=== PATIENT | female | born 1930 | race Caucasian/White ===

== ENCOUNTER 2018-03-24 16:28 | Emergency (ER) | payer MEDICARE, OTHER ==
[2018-03-24] MEDS ORDERED: Ondansetron 4 MG/2 ML SDV IVPUSH ONE (16:46)
[2018-03-24] MEDS ORDERED: HYDROmorphone 1 MG/ML Syringe IVPUSH ONE (16:47)
[2018-03-24] MEDS ORDERED: Sodium Chloride 0.9% 1,000 ML IV SCH (17:00)
[2018-03-24] MEDS: Sodium Chloride 0.9% 10 ML Syringe FLUSH PRN ×2 (17:20→18:21)
[2018-03-24] MEDS ORDERED: Iopamidol 612 MG/ML 100 ML Bottle IVPUSH ONE (18:20)
[2018-03-24] MEDS ORDERED: Diatrizoate Meglumine/Diatrizoate Sodium 37% 120 ML Bottle PO ONE (18:20)
--- NOTE | 2018-03-24 18:45 | CT ---
CT abdomen and pelvis Technique: Multiple axial sections were obtained from above the dome of the diaphragm inferiorly through the pubic symphysis. Intravenous and oral contrast was utilized. Delayed images were also obtained from above the kidneys inferiorly to the pubic symphysis. Comparison: No prior abdominal imaging is available. Findings: Small portion of the visualized lung bases show nothing acute. Visualized liver shows no focal parenchymal abnormality. Spleen appears within normal limits in size. There is a low density area showing lack of enhancement within the upper spleen having the appearance of a splenic infarct. Adrenal glands show no nodule. Multiple small cysts are noted within both kidneys, more numerous on the left side. Larger cyst is noted inferiorly within the left kidney measuring approximately 2.5 cm. Pancreas is within normal limits. Aorta shows diffuse atherosclerotic calcification which continues into the iliac vessels. No retroperitoneal adenopathy is seen. Gallbladder contains no calcified gallstones. No mesenteric abnormalities are seen. Appendix appears normal. Diverticuli are seen within the sigmoid colon and descending colon without diverticulitis. Calcifications are noted within the uterus which is felt to represent a combination of a small calcified fibroid and vascular calcification. No free fluid is seen within the pelvis. No pelvic mass or adenopathy is seen. Delayed images shows contrast within both nondilated ureters as well as contrast within the bladder. Bone window settings were reviewed which shows diffuse degenerative change throughout the spine. Impression: 1. Lack of enhancement within a portion of the upper spleen compatible with splenic infarct. 2. Other incidental findings as noted above. No other acute abnormality is seen. Diagnostic code #3
--- NOTE | 2018-03-24 18:51 | EDM.PDOC ---
ED HPI GENERAL MEDICAL PROBLEM - General Chief Complaint: Abdominal Pain Stated Complaint: SEVERE PAIN LEFT SIDE Time Seen by Provider: 03/24/18 16:41 Source of Information: Reports: Patient History Limitations: Reports: No Limitations - History of Present Illness INITIAL COMMENTS - FREE TEXT/NARRATIVE: The patient presents with left sided abdominal pain. The pain started yesterday and it is in the left upper and lower abdomen. She had some nausea but no vomiting. She has no appetite. She has no diarrhea. She had a normal BM yesterday. She has no fever, chills, cough, chest pain, shortness of breath or dysuria. She still has her appendix and gallbladder as far as she knows. Onset: Gradual Duration: Day(s): (Yesterday) Location: Reports: Abdomen Quality: Reports: Sharp Severity: Moderate Improves with: Reports: None Worsens with: Reports: None Associated Symptoms: Reports: Nausea/Vomiting. Denies: Chest Pain, Cough, Fever /Chills, Headaches, Shortness of Breath Left Abdomen Pain Score (Numeric/FACES): 6 - Related Data Allergies Allergy/AdvReac Type Severity Reaction Status Date / Time No Known Allergies Allergy Verified 03/24/18 16:39 Home Meds: Home Meds Simvastatin [Zocor] 10 mg PO DAILY 01/10/18 [History] metFORMIN [Glucophage XR] 1,000 mg PO BEDTIME 01/10/18 [History] Acetaminophen [Pain & Fever] 650 mg PO Q6HR PRN MDD 4 gm daily 01/13/18 [History ] Benazepril [Lotensin] 40 mg PO DAILY #0 01/13/18 [Rx] Cholecalciferol (Vitamin D3) [Vitamin D3] 1,000 units PO DAILY #30 tablet [Rx] Ibuprofen [Motrin] 600 mg PO Q6H PRN 01/13/18 [History] amLODIPine [Norvasc] 5 mg PO DAILY #0 01/13/18 [Rx] hydroCHLOROthiazide [Hydrochlorothiazide] 12.5 mg PO DAILY #0 01/13/18 [Rx] Past Medical History HEENT History: Reports: Hard of Hearing Other HEENT History: Bilateral hearing aides-not with Cardiovascular History: Reports: High Cholesterol, Hypertension [employer] History: Reports: Musculoskeletal History: Reports: Arthritis, Fracture Other Musculoskeletal History: Left arm fractured 7-8 yrs ago Endocrine/Metabolic History: Reports: Diabetes, Type II - Infectious Disease History Infectious Disease History: Reports: Chicken Pox - Past Surgical History HEENT Surgical History: Reports: None Cardiovascular Surgical History: Reports: None Endocrine Surgical History: Reports: None Social & Family History - Family History Family Medical History: Noncontributory - Tobacco Use Smoking Status *Q: Never Smoker Second Hand Smoke Exposure: No - Caffeine Use Caffeine Use: Reports: None - Recreational Drug Use Recreational Drug Use: No ED ROS GENERAL - Review of Systems Review Of Systems: See Below Constitutional: Reports: No Symptoms HEENT: Reports: No Symptoms Respiratory: Reports: No Symptoms Cardiovascular: Reports: No Symptoms Endocrine: Reports: No Symptoms GI/Abdominal: Reports: Abdominal Pain, Nausea. Denies: Diarrhea, Vomiting : Reports: No Symptoms Musculoskeletal: Reports: No Symptoms ED EXAM, GI/ABD - Physical Exam Exam: See Below Exam Limited By: No Limitations General Appearance: Alert, No Apparent Distress Ears: Normal External Exam Nose: Normal Inspection Head: Atraumatic, Normocephalic Neck: Normal Inspection Respiratory/Chest: No Respiratory Distress, Lungs Clear, Normal Breath Sounds Cardiovascular: Regular Rate, Rhythm, No Edema, No Murmur GI/Abdominal Exam: Soft, No Organomegaly, No Mass, Tender (Mild to moderate tenderness to the left lower and upper abdomen.) Course - Vital Signs Last Recorded V/S: Last Vital Signs Temp 97.1 F 03/24/18 16:35 Pulse 80 03/24/18 16:35 Resp 16 03/24/18 16:35 BP 124/63 03/24/18 16:35 Pulse Ox 99 03/24/18 16:35 - Orders/Labs/Meds Orders: Active Orders 24 hr Category Date Time Status EKG Documentation Completion [RC] ASDIRECTED Care 03/24/18 19:00 Active Peripheral IV Care [RC] . DIRECTED Care 03/24/18 16:46 Active CULTURE URINE [RM] Stat Lab 03/24/18 19:47 Ordered Sodium Chloride 0.9% [Normal Saline] 1,000 ml Med 03/24/18 17:00 Active IV ASDIRECTED Sodium Chloride 0.9% [Saline Flush] Med 03/24/18 16:46 Active 10 ml FLUSH ASDIRECTED PRN ED Antiemetic Medication Reflex [OM.PC] Stat Oth 03/24/18 16:46 Ordered Peripheral IV Insertion Adult [OM.PC] Stat Oth 03/24/18 16:46 Ordered EKG 12 Lead [EK] Stat Ther 03/24/18 18:59 Ordered Medication Orders Sodium Chloride (Normal Saline) 1,000 mls @ 125 mls/hr IV ASDIRECTED TOÑA Last Admin: 03/24/18 17:19 Dose: 125 mls/hr Sodium Chloride (Saline Flush) 10 ml FLUSH ASDIRECTED PRN PRN Reason: Keep Vein Open Last Admin: 03/24/18 18:21 Dose: 10 ml Admin: 03/24/18 17:20 Dose: 10 ml Labs: Laboratory Tests 03/24/18 03/24/18 03/24/18 Range/Units 16:59 17:09 17:09 WBC 10.07 H (3.98-10.04) K/mm3 RBC 4.93 (3.98-5.22) M/mm3 Hgb 14.7 (11.2-15.7) gm/L Hct 43.8 (34.1-44.9) % MCV 88.8 (79.4-94.8) fl MCH 29.8 (25.6-32.2) pg MCHC 33.6 (32.2-35.5) g/dl RDW Std Deviation 45.6 (36.4-46.3) fL Plt Count 207 (182-369) K/mm3 MPV 11.7 (9.4-12.3) fl Neut % (Auto) 67.8 (34.0-71.1) % Lymph % (Auto) 19.9 (19.3-51.7) % [place] % (Auto) 10.7 (4.7-12.5) % Eos % (Auto) 1.1 (0.7-5.8) Baso % (Auto) 0.3 (0.1-1.2) % Neut # (Auto) 6.83 H (1.56-6.13) K/mm3 Lymph # (Auto) 2.00 (1.18-3.74) K/mm3 [place] # (Auto) 1.08 H (0.24-0.36) K/mm3 Eos # (Auto) 0.11 (0.04-0.36) K/mm3 Baso # (Auto) 0.03 (0.01-0.08) K/mm3 Sodium 141 (136-145) mEq/L Potassium 3.1 L (3.5-5.1) mEq/L Chloride 101 (98-107) mEq/L Carbon Dioxide 29 (21-32) mEq/L Anion Gap 14.1 (5-15) BUN 21 H (7-18) mg/dL Creatinine 1.0 (0.55-1.02) mg/dL Est Cr Clr Drug Dosing 31.35 mL/min Estimated GFR (MDRD) 52 (>60) mL/min BUN/Creatinine Ratio 21.0 H (14-18) Glucose 145 H (83-115) mg/dL Calcium 9.7 (8.5-10.1) mg/dL Total Bilirubin 0.8 (0.2-1.0) mg/dL AST 26 (15-37) U/L ALT 19 (14-59) U/L Alkaline Phosphatase 135 H (46-116) U/L Total Protein 8.4 H (6.4-8.2) g/dl Albumin 3.6 (3.4-5.0) g/dl Globulin 4.8 gm/dL Albumin/Globulin Ratio 0.8 L (1-2) Lipase 140 (73-393) U/L Urine Color Yellow (Yellow) Urine Appearance Slt cloudy H (Clear) Urine pH 5.5 (5.0-8.0) Ur Specific [place] 1.025 (1.005-1.030) Urine Protein Trace H (Negative) Urine Glucose (UA) Negative (Negative) Urine Ketones Trace H (Negative) Urine Occult Blood Negative (Negative) Urine Nitrite Negative (Negative) Urine Bilirubin 1+ H (Negative) Urine Urobilinogen 1.0 (0.2-1.0) Ur Leukocyte Esterase Trace H (Negative) Urine RBC 0-5 (0-5) /hpf Urine WBC 10-20 H (0-5) /hpf Ur Epithelial Cells 5-10 H (0-5) /hpf Urine Bacteria Few (FEW) /hpf Urine Mucus Many H (FEW) /hpf Meds: Medications Generic Name Dose Route Start Last Admin Trade Name Freq PRN Reason Stop Dose Admin Sodium Chloride 1,000 mls @ 125 mls/hr 03/24/18 17:00 03/24/18 17:19 Normal Saline IV 125 mls/hr ASDIRECTED TOÑA Administration Sodium Chloride 10 ml 03/24/18 16:46 03/24/18 18:21 Saline Flush FLUSH 10 ml ASDIRECTED PRN Administration Keep Vein Open Discontinued Medications Generic Name Dose Route Start Last Admin Trade Name Freq PRN Reason Stop Dose Admin Diatrizoate Meglum/Diatrizoate Sod 60 ml 03/24/18 18:20 03/24/18 18:21 Gastrografin 37% PO 03/24/18 18:21 60 ml ONETIME ONE Administration Hydromorphone HCl 0.25 mg 03/24/18 16:47 03/24/18 17:22 Dilaudid IVPUSH 03/24/18 16:48 0.25 mg ONETIME ONE Administration Iopamidol 100 ml 03/24/18 18:20 03/24/18 18:22 Isovue-300 (61%) IVPUSH 03/24/18 18:21 100 ml ONETIME ONE Administration Ondansetron HCl 4 mg 03/24/18 16:46 03/24/18 17:20 Zofran IVPUSH 03/24/18 16:47 4 mg ONETIME ONE Administration - Re-Assessments/Exams Free Text/Narrative Re-Assessment/Exam: 03/24/18 18:49 I ordered an IV NS at 125mL/hr, dilaudid 0.5mg IV, zofran 4mg IV, labs, UA and a CT of her abdomen and pelvis. 03/24/18 18:50 Her WBC was elevated at 10.07. Her K was low at 3.1. Her glucose was elevated at 145. Her UA shows a possible UTI. I have ordered a culture of her urine. I will get a urine culture to be sure. Her CT came back and it shows lack of enhancement within a portion of the upper spleen compatible with splenic infarct. Other incidental findings. No other acute abnormality is seen. 03/24/18 19:35 She feels better after the dilaudid. I feel she needs to be admitted. I called Dr Beth our hospitalist and she was not comfortable keeping her here. I ordered an EKG. Her EKG shows a sinus rhythym with PACs and PJCs. 03/24/18 19:49 I called [facility] and talked with the hospitalist Dr Hammond and she accepted the patient. 03/24/18 19:52 When the patient first arrived. She was on the pulse oximeter while my nurse was hooking her up to the security monitor. The patient had a heart rate that went up to the 140s. We were unable to catch the rhythm. She could be having runs of A-fib that may have formed a clot. She has been having some PJCs and PACs on EKG and security monitor. Departure - Departure Time of Disposition: 20:00 Disposition: DC/Tfer to [facility] 02 Condition: Fair Clinical Impression: Splenic infarct - Discharge Information Referrals: Panda Jeffries MD [Primary Care Provider] - Forms: ED Department Discharge - My Orders Last 24 Hours: My Active Orders 03/24/18 16:46 Peripheral IV Care [RC] . DIRECTED Sodium Chloride 0.9% [Saline Flush] 10 ml FLUSH ASDIRECTED PRN ED Antiemetic Medication Reflex [OM.PC] Stat Peripheral IV Insertion Adult [OM.PC] Stat 03/24/18 17:00 Sodium Chloride 0.9% [Normal Saline] 1,000 ml IV ASDIRECTED 03/24/18 18:59 EKG 12 Lead [EK] Stat 03/24/18 19:00 EKG Documentation Completion [RC] ASDIRECTED 03/24/18 19:47 CULTURE URINE [RM] Stat - Assessment/Plan Last 24 Hours: My Active Orders 03/24/18 16:46 Peripheral IV Care [RC] . DIRECTED Sodium Chloride 0.9% [Saline Flush] 10 ml FLUSH ASDIRECTED PRN ED Antiemetic Medication Reflex [OM.PC] Stat Peripheral IV Insertion Adult [OM.PC] Stat 03/24/18 17:00 Sodium Chloride 0.9% [Normal Saline] 1,000 ml IV ASDIRECTED 03/24/18 18:59 EKG 12 Lead [EK] Stat 03/24/18 19:00 EKG Documentation Completion [RC] ASDIRECTED 03/24/18 19:47 CULTURE URINE [RM] Stat
== END 2018-03-24 20:35 ==
LOC: JD.ED 16:28
DX: D73.5 Infarction of spleen (principal); E78.00 Pure hypercholesterolemia, unspecified; I10 Essential (primary) hypertension; E11.9 Type 2 diabetes mellitus without complications; Z79.84 Long term (current) use of oral hypoglycemic drugs; Z79.899 Other long term (current) drug therapy
CPT/HCPCS: 36415; 74177; 80053; 81001; 83690; 85025; 87086; 93005; 96361; 96374; 96375; 99285; J1170; J2405; J7040; Q9963; Q9967; 93010; 99284